=== PATIENT | female | born 1995 | race Caucasian/White ===

== ENCOUNTER 2018-07-22 10:29 | Emergency (ER) | payer SELFPAY ==
[~2018-07-22] VITALS: Ht 167.6 cm; Wt 101.0 kg
[2018-07-22 11:59] LABS: CLARITY URINE CLOUDY (CLEAR); COLOR URINE DARK YELLOW (YELLOW); KETONES URINE 1+ (NEGATIVE); LEUKOCYTE ESTERASE URINE NEGATIVE (NEGATIVE); NITRITE URINE NEGATIVE (NEGATIVE); OCCULT BLOOD URINE NEGATIVE (NEGATIVE); PH URINE 5.5 (4.5-8.0); PROTEIN URINE 1+ (NEGATIVE); SPECIFIC GRAVITY URINE 1.037 (1.005-1.030); UROBILINOGEN URINE 0.2 E.U./dL (0.2-1.0)
[2018-07-22] MEDS ORDERED: SODIUM CHLORIDE 0.9% 1,000 ML IV ONE (20:47)
[2018-07-22] MEDS ORDERED: ONDANSETRON HCL 4MG/2ML INJ IV STA (20:47)
[2018-07-22 21:10] LABS: BASOPHILS % 0.6 % (0.0-2.0); EOSINOPHILS % 2.3 % (0.0-5.0); HEMATOCRIT. 44.5 % (36.0-48.0); HEMOGLOBIN. 15.1 g/dL (12.0-16.0); LYMPHOCYTES % 29.3 % (20.0-50.0); MEAN CORPUSCULAR HEMOGLOBIN 31.2 pg (28.0-32.0); MEAN CORPUSCULAR VOLUME 92.3 fL (81.0-99.0); MEAN PLATELET VOLUME 9.5 fl (7.4-10.4); NEUTROPHILS % 53.8 % (40.0-76.0); PLATELET 234 x1000/uL (130-400); RED BLOOD CELL COUNT 4.82 mill/uL (4.2-5.4); RED CELL DISTRIBUTION WIDTH 12.7 % (11.6-14.6)
[2018-07-22 21:12] LABS: CHLORIDE 105 mEq/L (98-107)
[2018-07-22 21:13] LABS: INR 1.1; PROTHROMBIN TIME 10.9 sec (9.1-11.1)
[2018-07-22] MEDS ORDERED: POTASSIUM CHLORIDE 20MEQ TABLET SR PO ONE (21:45)
[2018-07-22 23:25] VITALS: BP 121/48
== END 2018-07-22 23:26 | disposition home or self-care (01) ==
LOC: ER 10:29
DX: R11.10 Vomiting, unspecified (principal); R19.7 Diarrhea, unspecified; R10.9 Unspecified abdominal pain; F17.200 Nicotine dependence, unspecified, uncomplicated
CPT/HCPCS: 36415; 80053; 81003; 81025; 83690; 85025; 85610; 96374; 99283; J2405; J7030

== ENCOUNTER 2022-11-02 15:13 | Emergency (ER) | payer OTHER ==
[~2022-11-02] VITALS: Ht 167.6 cm; Wt 81.0 kg
[2022-11-02 15:36] VITALS: BP 129/81
[2022-11-02] MEDS ORDERED: PHEN51CR24 TP (16:42)
[2022-11-02] MEDS ORDERED: POLY17PO3 MT ×2 (16:42→16:56)
== END 2022-11-02 19:05 | disposition home or self-care (01) ==
LOC: ER 15:13
DX: K59.00 Constipation, unspecified (principal); K62.89 Other specified diseases of anus and rectum
CPT/HCPCS: 99282

== ENCOUNTER 2022-11-04 09:01 | Emergency (ER) | payer MEDICAID, OTHER ==
[~2022-11-04] VITALS: Ht 167.6 cm; Wt 78.6 kg
[~2022-11-04 09:01] MED LIST: POLY17PO3 MT
[2022-11-04] MEDS ORDERED: ACETAMINOPHEN 325MG TABLET PO ONE (10:00)
[2022-11-04] MEDS ORDERED: ONDANSETRON 4MG ODT PO ONE (10:45)
[2022-11-04] MEDS ORDERED: NA PHOS,M-B/NA PHOS,DI-BA ENEMA 118ML PR ONE (12:30)
[2022-11-04 14:45] VITALS: BP 141/79
[2022-11-04] MEDS ORDERED: KETOROLAC 60MG/2ML VIAL IM ONE (14:45)
[2022-11-04] MEDS ORDERED: LIDO5CRE18 TP (16:28)
[2022-11-04] MEDS ORDERED: NA P133E4 RC (16:28)
[2022-11-04] MEDS ORDERED: ONDA4TAB50 MT (16:28)
== END 2022-11-04 17:22 | disposition home or self-care (01) ==
LOC: ER 09:01
DX: K56.41 Fecal impaction (principal); Z00.00 Encounter for general adult medical examination without abnormal findings
CPT/HCPCS: 74018; 81025; 96372; 99283; J1885; Q0162

== ENCOUNTER 2022-11-06 09:33 | Emergency (ER) | payer MEDICAID, OTHER ==
[~2022-11-06] VITALS: Ht 167.6 cm; Wt 80.7 kg
[~2022-11-06 09:33] MED LIST changes: +LIDO5CRE18 TP; +NA P133E4 RC; +ONDA4TAB50 MT
[2022-11-06 09:49] VITALS: BP 132/79
[2022-11-06] MEDS ORDERED: KETOROLAC 30MG/ML VIAL IV STA (10:34)
[2022-11-06] MEDS ORDERED: ONDANSETRON HCL 4MG/2ML INJ IV STA (10:34)
[2022-11-06] MEDS ORDERED: SODIUM CHLORIDE 0.9% 1,000 ML IV ONE (11:00)
[2022-11-06 11:05] LABS: BASOPHILS % 0.5 % (0.0-2.0); EOSINOPHILS % 0.6 % (0.0-5.0); HEMATOCRIT. 40.9 % (36.0-48.0); LYMPHOCYTES % 11.1 % (20.0-50.0); MEAN CORPUSCULAR HEMOGLOBIN 32.3 pg (28.0-32.0); MEAN CORPUSCULAR VOLUME 94.5 fL (81.0-99.0); MEAN PLATELET VOLUME 8.8 fl (7.4-10.4); NEUTROPHILS % 81.8 % (40.0-76.0); PLATELET 258 x1000/uL (130-400); RED BLOOD CELL COUNT 4.32 mill/uL (4.2-5.4); RED CELL DISTRIBUTION WIDTH 12.4 % (11.6-14.6)
[2022-11-06 11:14] LABS: CHLORIDE 104 mEq/L (98-107)
[2022-11-06 11:17] LABS: HCG SCREEN NEGATIVE
[2022-11-06 13:37] LABS: CLARITY URINE CLEAR (CLEAR); COLOR URINE YELLOW (YELLOW); KETONES URINE 4+ (NEGATIVE); LEUKOCYTE ESTERASE URINE NEGATIVE (NEGATIVE); NITRITE URINE NEGATIVE (NEGATIVE); OCCULT BLOOD URINE 1+ (NEGATIVE); PH URINE 5.5 (4.5-8.0); PROTEIN URINE 1+ (NEGATIVE)
== END 2022-11-06 15:34 | disposition home or self-care (01) ==
LOC: ER 10:55
DX: K59.00 Constipation, unspecified (principal); Z98.890 Other specified postprocedural states
CPT/HCPCS: 36415; 74176; 80053; 81003; 81025; 83690; 84703; 85025; 96361; 96374; 96375; 99285; J1885; J2405; J7030; Z7610

== ENCOUNTER 2022-11-10 19:26 | Emergency (ER) | payer MEDICAID, OTHER ==
[~2022-11-10] VITALS: Ht 167.6 cm; Wt 75.0 kg
[2022-11-10 19:27] VITALS: O2SAT 100
[2022-11-10] MEDS ORDERED: LORAZEPAM 2MG/ML CPJ IV ONE (20:45)
[2022-11-10] MEDS ORDERED: SODIUM CHLORIDE 0.9% 1,000 ML IV ONE (20:45)
[2022-11-10 21:00] LABS: BASOPHILS % 0.3 % (0.0-2.0); EOSINOPHILS % 1.3 % (0.0-5.0); HEMATOCRIT. 39.1 % (36.0-48.0); HEMOGLOBIN. 13.2 g/dL (12.0-16.0); LYMPHOCYTES % 14.9 % (20.0-50.0); MEAN CORPUSCULAR HEMOGLOBIN 32.1 pg (28.0-32.0); MEAN CORPUSCULAR VOLUME 94.9 fL (81.0-99.0); MEAN PLATELET VOLUME 9.5 fl (7.4-10.4); MONOCYTES % 8.6 % (2.0-8.0); NEUTROPHILS % 74.9 % (40.0-76.0); PLATELET 282 x1000/uL (130-400); RED BLOOD CELL COUNT 4.12 mill/uL (4.2-5.4); RED CELL DISTRIBUTION WIDTH 12.3 % (11.6-14.6)
[2022-11-10 21:05] LABS: CHLORIDE 104 mEq/L (98-107)
[2022-11-10] MEDS ORDERED: POTASSIUM CHLORIDE 20MEQ TABLET SR PO NR (21:45)
[2022-11-10 21:57] LABS: CLARITY URINE TURBID (CLEAR); COLOR URINE ORANGE (YELLOW); KETONES URINE 3+ (NEGATIVE); LEUKOCYTE ESTERASE URINE 2+ (NEGATIVE); NITRITE URINE NEGATIVE (NEGATIVE); OCCULT BLOOD URINE 3+ (NEGATIVE); PROTEIN URINE 2+ (NEGATIVE); SPECIFIC GRAVITY URINE 1.019 (1.005-1.030)
[2022-11-10 21:58] LABS: PROTHROMBIN TIME 11.1 sec (9.6-11.0)
[2022-11-10] MEDS ORDERED: MINERAL OIL ENEMA 133ML PR ONE (23:30)
[2022-11-10] MEDS ORDERED: POLYETHYLENE GLYCOL 3350 (17GM) 1 DOSE PACK PO ONE (23:30)
[2022-11-11] MEDS ORDERED: FEO RC (00:18)
[2022-11-11] MEDS ORDERED: DOCU-150 MT (00:18)
[2022-11-11] MEDS ORDERED: POLY17PO3 MT (00:18)
[2022-11-11] MEDS ORDERED: DOCUSATE SODIUM 250MG CAPSULE PO ONE (00:30)
[2022-11-11 00:49] VITALS: BP 128/70; PULSE 98; RESP 16; TEMP 98.7
== END 2022-11-11 00:50 | disposition home or self-care (01) ==
LOC: ER 19:29
DX: F41.9 Anxiety disorder, unspecified (principal); Z98.890 Other specified postprocedural states
CPT/HCPCS: 36415; 74018; 80053; 81003; 85025; 85610; 96361; 96374; 99284; J2060; J7030; Z7610